=== PATIENT | female | born 1975 | race African-American/Black ===

== ENCOUNTER 2018-06-10 22:02 | Emergency (ER) | payer SELFPAY ==
[2018-06-11 01:01] LABS: APPEARANCE,URINE CLOUDY; BILIRUBIN,URINE NEGATIVE (NEGATIVE); COLOR,URINE YELLOW; GLUCOSE, URINE NEGATIVE (NEGATIVE); KETONES,URINE NEGATIVE (NEGATIVE); LEUKOCYTE ESTERASE,URINE LARGE (NEGATIVE); NITRITE,URINE NEGATIVE (NEGATIVE); PROTEIN,URINE NEGATIVE (NEGATIVE); URINE SPECIFIC GRAVITY 1.019
--- NOTE | 2018-06-11 01:31 | ER Document Report ---
ED General - General Chief Complaint: Flu Symptoms Stated Complaint: URINARY ISSUE Time Seen by Provider: 06/11/18 01:26 Mode of Arrival: Ambulatory Information source: Patient TRAVEL OUTSIDE OF THE [place] IN LAST 30 DAYS: No - HPI Patient complains to provider of: Persistent cough, dysuria, vaginal discharge Onset: Last week Onset/Duration: Gradual Quality of pain: No pain Severity: Mild Pain Level: 0 Associated symptoms: denies: Chills, Fever Exacerbated by: Denies Relieved by: Denies Similar symptoms previously: No Recently seen / treated by doctor: No Notes: Patient is a 42-year-old -[place] female coming tonight with chief complaint of persistent cough for couple weeks. No fevers. No body aches. No malaise. No other symptoms. Also with dysuria and frequency. A whitish vaginal discharge is noted. Past Medical History - General Information source: Patient - Social History Smoking Status: Never Smoker Chew tobacco use (# tins/day): No Drug Abuse: None Family History: Reviewed & Not Pertinent Patient has suicidal ideation: No Patient has homicidal ideation: No Renal/ Medical History: Denies: Hx Peritoneal Dialysis Review of Systems - Review of Systems Notes: Constitutional: No fevers. No chills. EENT: No eye redness. No eye pain. No ear pain. No sore throat. Cardiovascular: No chest pain. No palpitations. Respiratory: Cough. No shortness of breath. No respiratory distress. Gastrointestinal: No abdominal pain. No nausea, vomiting, or diarrhea. Genitourinary: Positive dysuria, positive white itchy vaginal discharge Musculoskeletal: Atraumatic. No swelling. No deformities. Skin: No rash or lesions. Lymphatic: No swollen lymph nodes. Neurologic: No headache. No syncope. Psychiatric: No suicidal or homicidal ideation. Physical Exam - Vital signs Vitals: Temp Pulse Resp BP Pulse Ox 97.7 F 76 15 126/64 H 98 06/10/18 23:18 06/10/18 23:18 06/10/18 23:18 06/10/18 23:18 06/10/18 23:18 - Notes Notes: General: Well-developed, well-nourished. In no acute distress. Non-toxic a ppearing. Cardiac: Well-perfused. Regular rate and rhythm. No murmurs, rubs, or gallops. Pulmonary: No respiratory distress. No cyanosis. Bilateral lung fiels are clear to auscultation. Abdominal: Non-distended. Non-rigid. Bowels sounds are present in all four quadrants. No guarding or rebound. HEENT: Head is atraumatic. Conjunctivae not reddened. No tearing. PERRL. EOMI. Orbits atraumatic. No periorbital swelling or erythema. Oropharynx is without erythema, swelling, or exudates. Neck: Supple. No adenopathy. No meningismus. Dermatologic: Warm with good turgor. No rash. Atraumatic. Chest: Atraumatic. No chest wall tenderness to palpation. Musculoskeletal: Moves all extremities well. No range of motion deficits. no muscular or joint tenderness. No paraspinal muscle tenderness. no midline spinal tenderness or step-off. Genitourinary: Examination deferred Neurologic: No gross neurologic deficits. Psychiatric: Normal mood. Course - Re-evaluation Re-evalutation: 06/11/18 01:36 Patient is having some frequency of urination and some dysuria. Also have been a white itchy vaginal discharge. Patient relates that she has had UTIs and also yeast infections. She thinks that is most likely what this is. She has had some unprotected sex and we have cultured her urine. Pelvic exam was deferred. GC and Chlamydia are still pending. For now we will go ahead and treat her UTI and we will also treat her cough which I think is most likely upper respiratory. I will wait for the GC and Chlamydia cultures to play out and we will notify her if she needs treatment for either of them. - Vital Signs Vital signs: Temp Pulse Resp BP Pulse Ox 97.7 F 76 15 126/64 H 98 06/10/18 23:18 06/10/18 23:18 06/10/18 23:18 06/10/18 23:18 06/10/18 23:18 - Laboratory Laboratory results interpreted by me: 06/11/18 00:15 Urine Urobilinogen 2.0 H Ur Leukocyte Esterase LARGE H Discharge - Discharge Clinical Impression: Cough, Vaginal discharge UTI (urinary tract infection) Qualifiers: Urinary tract infection type: site unspecified Hematuria presence: without hematuria Qualified Code(s): N39.0 - Urinary tract infection, site not specified Condition: Good Disposition: HOME, SELF-CARE Instructions: Cough Suppressant & Expectorant Medications, Upper Respiratory Illness ([facility]), Urinary Tract Infection ([facility]) Additional Instructions: Return to the ER or see your primary care doctor or health clinic if your symptoms do not start improving in the next couple of days. Prescriptions: Benzonatate [Tessalon Perles 100 mg Capsule] 100 mg PO Q8HP PRN #30 capsule PRN Reason: Doxycycline Hyclate 100 mg PO BID #14 capsule Fluconazole [Diflucan 100 Mg Tablet] 100 mg PO ONCE #2 tablet Referrals: [facility] [Provider Group] - Follow up as needed
[2018-06-11] MEDS ORDERED: BENZONATATE 100 MG CAPSULE PO ONE (01:35)
[2018-06-11 01:50] VITALS: BP 121/80
[2018-06-11 02:19] LABS: CHLAM PCR NOT DETECTED (NOT DETECT); GON PCR NOT DETECTED (NOT DETECT)
== END 2018-06-11 01:49 | disposition home or self-care (01) ==
LOC: ER 22:02
DX: N39.0 Urinary tract infection, site not specified (principal); N89.8 Other specified noninflammatory disorders of vagina; R05 Cough; R39.198 Other difficulties with micturition; R30.0 Dysuria
CPT/HCPCS: 81001; 81025; 87491; 87591; 99283

== ENCOUNTER 2020-05-27 20:06 | Emergency (ER) | payer SELFPAY ==
--- NOTE | 2020-05-27 20:28 | ER Document Report ---
ED Medical Screen (RME) - General Chief Complaint: Pelvic Pain Stated Complaint: PELVIC PAIN, PAINFUL URINATION Time Seen by Provider: 05/27/20 20:25 Notes: HPI: 44-year-old female presenting for dysuria with pelvic pressure for approximately 1 week. Also reports vaginal odor with a slight discharge. No nausea no vomiting. Patient believes she has a urinary infection. States she has also had vaginitis in the past PHYSICAL EXAMINATION: Mild tenderness across the pelvis on palpation. exam deferred in triage I have greeted and performed a rapid initial assessment of this patient. A comprehensive ED assessment and evaluation of the patient, analysis of test results and completion of medical decision making process will be conducted by an additional ED providers. Please note that clinical decision making for this patient was made during the 2019 pandemic of novel coronavirus which caused a significant strain on the healthcare system including at this particular facility. Criteria for admission discharge and level of care decisions as well as treatment decisions have necessarily changed TRAVEL OUTSIDE OF THE [place] IN LAST 30 DAYS: No Past Medical History Renal/ Medical History: Denies: Hx Peritoneal Dialysis Physical Exam - Vital signs Vitals: Temp Pulse Resp BP Pulse Ox 97.7 F 73 14 123/67 99 05/27/20 20:13 05/27/20 20:13 05/27/20 20:13 05/27/20 20:13 05/27/20 20:13 Course - Vital Signs Vital signs: Temp Pulse Resp BP Pulse Ox 97.7 F 73 14 123/67 99 05/27/20 20:13 05/27/20 20:13 05/27/20 20:13 05/27/20 20:13 05/27/20 20:13
[2020-05-27 20:57] LABS: APPEARANCE,URINE CLEAR; BILIRUBIN,URINE NEGATIVE (NEGATIVE); COLOR,URINE STRAW; GLUCOSE, URINE NEGATIVE (NEGATIVE); KETONES,URINE NEGATIVE (NEGATIVE); LEUKOCYTE ESTERASE,URINE NEGATIVE (NEGATIVE); NITRITE,URINE NEGATIVE (NEGATIVE); PROTEIN,URINE NEGATIVE (NEGATIVE); URINE SPECIFIC GRAVITY 1.009; UROBILINOGEN,URINE NEGATIVE mg/dL (<2.0)
--- NOTE | 2020-05-27 23:13 | ER Document Report ---
ED GI/ - General Chief Complaint: Urinary Problem Stated Complaint: PELVIC PAIN, PAINFUL URINATION Time Seen by Provider: 05/27/20 20:25 Primary Care Provider: YESICA YOUNG MD [ACTIVE STAFF] - Follow up as needed Mode of Arrival: Ambulatory Information source: Patient Notes: 44-year-old female presents to the emergency room complaining of dysuria with frequency and vaginal irritation for the past 2 weeks. Some intermittent pelvic pain. Denies any change in sexual partners. No history of STDs. States the pelvic pain is very intermittent and mild describes it as light cramping. Denies any nausea, vomiting, no fevers. No COVID-19 exposure TRAVEL OUTSIDE OF THE [place] IN LAST 30 DAYS: No - Related Data Allergies/Adverse Reactions: No Known Allergies Allergy (Unverified 05/27/20 22:51) Past Medical History - General Information source: Patient - Social History Smoking Status: Never Smoker Chew tobacco use (# tins/day): No Frequency of alcohol use: Rare Drug Abuse: None Family History: Reviewed & Not Pertinent Patient has homicidal ideation: No Renal/ Medical History: Denies: Hx Peritoneal Dialysis Review of Systems - Review of Systems Constitutional: No symptoms reported EENT: No symptoms reported Cardiovascular: No symptoms reported Respiratory: No symptoms reported Gastrointestinal: No symptoms reported Genitourinary: Dysuria, Frequency, Urgency Female Genitourinary: Vaginal discharge, Other - Pelvic cramping Musculoskeletal: No symptoms reported Skin: No symptoms reported Neurological/Psychological: No symptoms reported -: Yes All other systems reviewed and negative Physical Exam - Vital signs Vitals: Temp 97.7 F 05/27/20 20:07 - General General appearance: Appears well, Alert In distress: Mild - HEENT Head: Normocephalic, Atraumatic Eyes: Normal Pupils: PERRL - Respiratory Respiratory status: No respiratory distress Chest status: Nontender Breath sounds: Normal Chest palpation: Normal - Cardiovascular Rhythm: Regular Heart sounds: Normal auscultation Murmur: No - Abdominal Inspection: Normal Distension: No distension Bowel sounds: Normal Tenderness: Nontender Organomegaly: No organomegaly - Genitourinary External exam: Normal Speculum exam: Cervix closed, Vaginal discharge - Thin white discharge noted on exam., Other - Inner labia is erythematous without any discharge noted. Vaginal bleeding: None Bimanuel exam: Normal. No: Cervical motion tender, Adnexal mass, Adnexal tenderness, Uterus enlarged Notes: RN Rajni present as ginseng farmer. - Back Back: Normal, Nontender. No: CVA tenderness - Neurological Neuro grossly intact: Yes Cognition: Normal Orientation: AAOx4 [place] Coma Scale Eye Opening: Spontaneous [place] Coma Scale Verbal: Oriented [place] Coma Scale Motor: Obeys Commands Theresa Coma Scale Total: 15 Speech: Normal Motor strength normal: LUE, RUE, LLE, RLE Sensory: Normal Course - Re-evaluation Re-evalutation: 05/27/20 23:32 Reviewed negative urine results and negative test with patient. Wet prep is pending. Offered presumptive treatment for gonorrhea and chlamydia. Patient would like to wait for her wet prep results prior to getting treated for gonorrhea and/or chlamydia. She is pain-free on exam no additional diagnostic testing required at this time. 05/28/20 00:42 Reviewed negative wet prep results with patient. GC and Chlamydia are still pending. Patient wants to wait for her GC and chlamydia results prior to being treated for gonorrhea and chlamydia. Offered pelvic ultrasound patient refused. States she is no longer having any pelvic pain. Patient had some erythema that was noted on the exam there were no signs of yeast on her wet prep. Patient is symptomatic for candidiasis the labia is erythematous without discharge. Patient is requesting to be treated for yeast. Will write one prescription for Diflucan. Refer outpatient [facility]. On-call physician will be provided. Patient was given strict return to the emergency room guidelines. Return for any new or worsening symptoms. All questions were answered. Patient verbalized understanding and agrees with plan of care. 05/28/20 00:43 05/28/20 02:02 - Vital Signs Vital signs: Temp Pulse Resp BP Pulse Ox 98.3 F 62 14 117/68 100 05/28/20 00:50 05/28/20 00:50 05/28/20 00:50 05/28/20 00:50 05/28/20 00:50 - Laboratory Results Critical Laboratory Results Reviewed: No Critical Results - Radiology Results Critical Radiology Results Reviewed: No Critical Results Discharge - Discharge Clinical Impression: Vaginal irritation Condition: Stable Disposition: HOME, SELF-CARE Instructions: Pelvic Pain ([facility]) Additional Instructions: Take Diflucan as prescribed. You will be notified if your gonorrhea and/or chlamydia test are positive. Follow-up outpatient with [facility] as discussed. Return to emergency room for any new or worsening symptoms. Prescriptions: Fluconazole [Diflucan] 150 mg PO ONCE 1 Days #1 tablet Referrals: YESICA YOUNG MD [ACTIVE STAFF] - Follow up as needed
[2020-05-28 00:30] LABS: T.VAGINALIS (WET MOUNT) NO TRICHOMONAS SEEN; WBCS (WET MOUNT) FEW WBCS SEEN; YEAST (WET MOUNT) NO YEAST SEEN
[2020-05-28 00:31] LABS: RBCS (WET MOUNT) RARE RBCS SEEN
[2020-05-28 00:58] VITALS: BP 117/68
[2020-05-28 01:58] LABS: CHLAM PCR NOT DETECTED (NOT DETECT)
== END 2020-05-28 00:58 | disposition home or self-care (01) ==
LOC: ER 20:06
DX: R10.2 Pelvic and perineal pain (principal); L53.9 Erythematous condition, unspecified; R30.0 Dysuria; R35.0 Frequency of micturition; R39.15 Urgency of urination; N89.8 Other specified noninflammatory disorders of vagina
CPT/HCPCS: 81001; 81025; 87210; 87491; 87591; 99284